=== PATIENT | female | born 1955 | race Caucasian/White ===

== ENCOUNTER 2018-02-25 20:22 | Emergency (ER) | payer OTHER ==
[~2018-02-25] VITALS: Ht 167.6 cm; Wt 130.3 kg
[2018-02-25] MEDS ORDERED: HYTRIN 2MG CAPSU2 M1 PO (20:39)
[2018-02-25] MEDS ORDERED: CEFDINIR300 MG PO (20:40)
[2018-02-25] MEDS ORDERED: TRULICITY0.75 MG/0. SUBQ (20:40)
[2018-02-25 20:53] LABS: ABSOLUTE BASOPHILS 0.1 thou/uL (0.0-0.2); ABSOLUTE EOSINOPHILS 0.1 thou/uL (0.0-0.7); ABSOLUTE LYMPHOCYTES 3.8 thou/uL (0.8-5.3); ABSOLUTE MONOCYTES 0.7 thou/uL (0.0-1.2); ABSOLUTE NEUTROPHILS 4.2 thou/uL (1.6-8.1); BASOPHILS 0.9 %; EOSINOPHILS 1.5 %; HEMATOCRIT 39.2 % (37.0-47.0); LYMPHOCYTES 42.4 %; MCH 30.6 pg (26.0-34.0); MCHC 33.2 g/dL (28.0-37.0); MCV 92.2 fL (80.0-100.0); MONOCYTES 7.9 %; MPV 9.5 fl. (7.2-11.1); NUCLEATED RBCS 0 /100WBC; PLATELET COUNT* 243 thou/uL (150-400); POLYS 47.3 %; RBC 4.25 mil/uL (4.20-5.00); WBC 8.9 thou/uL (4.0-11.0)
[2018-02-25 21:01] LABS: ANION GAP 6 mmol/L (7-16); BUN 18 mg/dL (7-18); CALCIUM 9.1 mg/dL (8.5-10.1); CHLORIDE 101 mmol/L (98-107); CO2 30 mmol/L (21-32); CREATININE 0.8 mg/dL (0.6-1.3); GLUCOSE 198 mg/dL (70-99); POTASSIUM 3.9 mmol/L (3.5-5.1); SODIUM 137 mmol/L (136-145)
[2018-02-25 21:05] LABS: APTT 28.5 Seconds (25.0-31.3); PROTIME 10.5 Seconds (9.20-11.50)
[2018-02-25 21:13] LABS: ALBUMIN 3.8 g/dL (3.4-5.0); ALKALINE PHOSPHATASE 97 U/L (46-116); LIPASE 129 U/L (73-393); SGOT 30 U/L (15-37); SGPT 46 U/L (30-65); TOTAL BILIRUBIN 0.5 mg/dL (<0.1-1.0); TROPONIN-I LEVEL <0.06 ng/mL (<0.06)
[2018-02-25 23:30] VITALS: BP 137/74
--- NOTE | 2018-02-26 10:55 | EKG ---
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1955 Requested By: Mikayla aL Order Number: [id number] MD: Leroy Zuniga Measurements Intervals [place] Rate: 80 P: 38 ME: 183 QRS: 4 QRSD: 99 T: 31 QT: 408 QTc: 471 Interpretive Statements Sinus rhythm Abnormal R-wave progression, early transition Left ventricular hypertrophy Baseline wander in lead(s) I,II,aVR,aVL,V2 No previous ECG available for comparison Electronically Signed On 02-26-2018 10:55:15 CDT by Leroy Zuniga [email or web address] <ELECTRONICALLY SIGNED> By: Leroy Zuniga MD, FACC 02/26/18 1055 25 25 Leroy Zuniga MD, FACC /EPI
== END 2018-02-25 23:31 | disposition home or self-care (01) ==
LOC: M.ERS 20:22
PROVIDERS: Personal Emergency Response Attendant
DX: R10.13 Epigastric pain (principal); R07.89 Other chest pain; E11.9 Type 2 diabetes mellitus without complications

== ENCOUNTER → 2020-11-04 | Outpatient (CLI) | payer OTHER ==
[~2020-11-04] MED LIST: CEFDINIR300 MG PO; HYTRIN 2MG CAPSU2 M1 PO; TRULICITY0.75 MG/0. SUBQ
== END ==
LOC: M.CT 07:48
PROVIDERS: ATTEND Internal Medicine Cardiovascular Disease
DX: Z13.6 Encounter for screening for cardiovascular disorders (principal); R91.8 Other nonspecific abnormal finding of lung field

== ENCOUNTER 2021-02-04 09:21 | Observation (INO) | payer OTHER ==
[~2021-02-04] VITALS: Ht 152.4 cm; Wt 124.3 kg
[~2021-02-04 09:21] MED LIST changes: +BACTRIM DS TAB1 EAC1 PO
[2021-02-04 09:30] VITALS: BP 138/89
[2021-02-04] MEDS ORDERED: PERCOCET 10-321 EAC1 PO (09:38)
[2021-02-04 09:57] LABS: ABSOLUTE BASOPHILS 0.1 thou/uL (0.0-0.2); ABSOLUTE EOSINOPHILS 0.2 thou/uL (0.0-0.7); ABSOLUTE MONOCYTES 0.7 thou/uL (0.0-1.2); ABSOLUTE NEUTROPHILS 7.3 thou/uL (1.6-8.1); BASOPHILS 0.8 %; EOSINOPHILS 1.6 %; HEMATOCRIT 33.4 % (37.0-47.0); LYMPHOCYTES 19.1 %; MCH 27.8 pg (26.0-34.0); MCHC 32.8 g/dL (28.0-37.0); MCV 84.7 fL (80.0-100.0); MONOCYTES 7.2 %; MPV 8.6 fl. (7.2-11.1); NUCLEATED RBCS 0 /100WBC; PLATELET COUNT* 234 thou/uL (150-400); POLYS 71.3 %; RBC 3.94 mil/uL (4.20-5.00); RDW-CV 15.4 % (10.5-14.5); WBC 10.3 thou/uL (4.0-11.0)
[2021-02-04 10:02] LABS: CALCIUM 8.4 mg/dL (8.5-10.1); CREATININE 0.9 mg/dL (0.6-1.3); POTASSIUM 4.1 mmol/L (3.5-5.1)
--- NOTE | 2021-02-04 10:17 | EKG ---
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
[2021-02-04] MEDS ORDERED: SENOKOT8.6 MG PO (16:48)
[2021-02-04] MEDS ORDERED: MIRALAX119 GM PO (16:48)
[2021-02-04] MEDS ORDERED: LEVO-T100 MCG PO (16:51)
[2021-02-04] MEDS ORDERED: OXYBUTYNIN 5 MG5 M2 PO (16:53)
[2021-02-04] MEDS ORDERED: BACTRIM DS TAB1 EACH PO (16:54)
[2021-02-04 17:27] VITALS: BP 111/64
[2021-02-04 17:45] VITALS: BP 145/56
[2021-02-04 21:00] VITALS: BP 133/55
[2021-02-05 00:13] VITALS: BP 125/49
[2021-02-05 04:35] VITALS: BP 139/80
--- NOTE | 2021-02-05 07:57 | NUR ---
PATIENT HAS SLEPT OFF AND ON DURING THE NIGHT. VSS ON 3L 02 VIA NASAL CANNULA. AT BEDSIDE. PATIENT DOES GET SOA UPON EXERTION WHEN UP AND AMBULATING TO THE BATHROOM. MEDICATIONS GIVEN ORDERED AND CHARTED. ASSESSMENT CHARTED.IV IN LEFT AC-SL. PATIENT INSTRUCTED TO USE CALL LIGHT WHEN NEEDING ASSISTANCE. HOURLY ROUNDS MADE. WILL CONTINUE WITH PLAN OF CARE AND NURSING TO MONITOR.
[2021-02-05 08:00] VITALS: BP 138/70
[2021-02-05] MEDS ORDERED: ELIQUIS5 MG PO ×2 (09:58)
[2021-02-05 11:04] VITALS: BP 139/80
[2021-02-05 11:59] VITALS: BP 139/80
--- NOTE | 2021-02-05 15:54 | NUR ---
PT WAS SET UP FOR OXYGEN WITH CAM. PT THEN SENT HOME WITH ALL SUPPLIES ACCOMPANIED BY HER SPOUSE AMRIK. [employer] REMOVED HUB INTACT. PT DISMISSED HOME, CAM WILL MEET THEM AT THE HOUSE ALONG WITH THEIR DAUGHTER. PT DISMISSED HOME.
== END 2021-02-05 15:15 | disposition home or self-care (01) ==
LOC: M.ERS 09:21 → M.TBA-ER 13:50 → M.3W 16:54
PROVIDERS: Emergency Medicine; ADMIT Internal Medicine; ATTEND Internal Medicine
DX: I26.99 Other pulmonary embolism without acute cor pulmonale (principal); R09.02 Hypoxemia; Z20.822 Contact with and (suspected) exposure to COVID-19; C25.9 Malignant neoplasm of pancreas, unspecified; C78.00 Secondary malignant neoplasm of unspecified lung; C78.7 Secondary malignant neoplasm of liver and intrahepatic bile duct; E11.9 Type 2 diabetes mellitus without complications; E06.3 Autoimmune thyroiditis; M06.9 Rheumatoid arthritis, unspecified; Z79.4 Long term (current) use of insulin; Z79.899 Other long term (current) drug therapy